=== PATIENT | female | born 1965 | race Caucasian/White ===

== ENCOUNTER → 2020-03-21 08:07 | Outpatient (BNVA) | payer MEDICAID, SELFPAY | PROVIDERS: Visit Provider Nurse Practitioner Family | DX: G47.33 Obstructive sleep apnea (adult) (pediatric) (principal) | CPT/HCPCS: 99213 ==

== ENCOUNTER 2020-05-01 11:55 | Outpatient (REF) | payer MEDICAID, SELFPAY ==
[2020-05-01 14:22] LABS: Thyroid Stimulating Hormone 1.44 uIU/mL (0.32-4.0); Vitamin D 25-OH Total 26.2 ng/mL (>30)
== END 2020-05-01 11:56 | disposition home or self-care (01) ==
LOC: HO.LAB 11:55
PROVIDERS: PCP Internal Medicine; Visit Provider Internal Medicine
DX: E55.9 Vitamin D deficiency, unspecified (principal); E03.9 Hypothyroidism, unspecified; E04.2 Nontoxic multinodular goiter
CPT/HCPCS: 82306; 84439; 84443

== ENCOUNTER → 2020-08-24 11:29 | Outpatient (BNVA) | payer MEDICAID, SELFPAY | PROVIDERS: PCP Internal Medicine; Visit Provider Internal Medicine ==

== ENCOUNTER → 2020-09-19 10:07 | Outpatient (BNVA) | payer MEDICAID, SELFPAY | PROVIDERS: PCP Internal Medicine; Visit Provider Nurse Practitioner Family ==

== ENCOUNTER 2020-11-16 09:22 | Outpatient (REF) | payer MEDICAID, SELFPAY ==
--- NOTE | 2020-11-16 09:45 | EMG_ITS ---
Bilateral median and ulnar motor and sensory studies were performed. Bilateral radial sensory studies were performed and paraspinal muscles were tested with a needle. IMPRESSION: 1. [id number] right, and mild left, median neuropathy across carpal tunnel. 2. Mild left ulnar neuropathy across cubital tunnel. MD NANCY Heard/FERNANDA / [phone]
== END 2020-11-16 09:23 | disposition home or self-care (01) ==
LOC: HO.NEURO 09:22
PROVIDERS: Visit Provider Emergency Medicine
DX: M25.531 Pain in right wrist (principal); M25.532 Pain in left wrist
CPT/HCPCS: 95886; 95911

== ENCOUNTER 2020-12-22 12:08 | Outpatient (REF) | payer MEDICAID, SELFPAY ==
[2020-12-22 13:42] LABS: Free T4 (Free Thyroxine) 0.87 ng/dL (0.71-1.85); Thyroid Stimulating Hormone 1.46 uIU/mL (0.32-4.0)
== END 2020-12-22 12:09 | disposition home or self-care (01) ==
LOC: HO.LAB 12:08
PROVIDERS: PCP Internal Medicine; Visit Provider Internal Medicine
DX: E04.2 Nontoxic multinodular goiter (principal)
CPT/HCPCS: 36415; 84439; 84443

== ENCOUNTER → 2021-01-10 10:12 | Outpatient (BNVA) | payer MEDICAID, SELFPAY | PROVIDERS: PCP Internal Medicine; Visit Provider Orthopaedic Surgery | DX: G56.03 Carpal tunnel syndrome, bilateral upper limbs (principal); G56.22 Lesion of ulnar nerve, left upper limb | CPT/HCPCS: 99202 ==

== ENCOUNTER → 2021-02-21 15:02 | Outpatient (BNVA) | payer MEDICAID, SELFPAY | PROVIDERS: PCP Internal Medicine; Referring Provider Internal Medicine; Visit Provider Nurse Practitioner Family | DX: R13.10 Dysphagia, unspecified (principal); E04.2 Nontoxic multinodular goiter; E03.9 Hypothyroidism, unspecified; E55.9 Vitamin D deficiency, unspecified; G47.33 Obstructive sleep apnea (adult) (pediatric); Z88.8 Allergy status to other drugs, medicaments and biological substances; Z99.89 Dependence on other enabling machines and devices | CPT/HCPCS: 99202 ==

== ENCOUNTER → 2021-04-10 11:17 | Outpatient (BNVA) | payer MEDICAID, SELFPAY | PROVIDERS: PCP Internal Medicine; Referring Provider Internal Medicine; Visit Provider Nurse Practitioner Family ==

== ENCOUNTER 2021-07-18 10:01 | Outpatient (REF) | payer MEDICAID, SELFPAY ==
--- NOTE | ~2021-07-18 | XR_ITS ---
EXAMINATION: XR ELBOW, LEFT CLINICAL INFORMATION: Left elbow pain. COMPARISON: None TECHNIQUE: AP, lateral, and bilateral oblique views of the left elbow. FINDINGS: The bones and soft tissues are normal. No fracture or joint effusion. Alignment is anatomic. Joint spaces are maintained. XR/XR elbow LT 2V IMPRESSION: Unremarkable examination.
== END 2021-07-18 10:02 | disposition home or self-care (01) ==
LOC: HO.XRAY 10:01
PROVIDERS: PCP Internal Medicine; Visit Provider Internal Medicine
DX: M25.522 Pain in left elbow (principal)
CPT/HCPCS: 73070

== ENCOUNTER 2021-08-28 08:49 | Outpatient (REF) | payer MEDICAID, SELFPAY ==
[2021-08-28 10:11] LABS: Thyroid Stimulating Hormone 2.57 uIU/mL (0.32-4.0); Vitamin D 25-OH Total 23.7 ng/mL (>30)
== END 2021-08-28 08:50 | disposition home or self-care (01) ==
LOC: HO.LAB 08:49
PROVIDERS: Absent Provider Internal Medicine; PCP Internal Medicine; Visit Provider Internal Medicine
DX: E04.2 Nontoxic multinodular goiter (principal); E55.9 Vitamin D deficiency, unspecified
CPT/HCPCS: 36415; 82306; 84439; 84443

== ENCOUNTER → 2021-08-29 11:59 | Outpatient (BNVA) | payer MEDICAID, SELFPAY | PROVIDERS: PCP Internal Medicine; Visit Provider Internal Medicine | DX: M77.12 Lateral epicondylitis, left elbow (principal); E03.9 Hypothyroidism, unspecified; E55.9 Vitamin D deficiency, unspecified; E04.2 Nontoxic multinodular goiter | CPT/HCPCS: 20551; 99202; 99212; J1100 ==

== ENCOUNTER 2021-09-03 16:01 | Outpatient (REF) | payer MEDICAID, SELFPAY ==
--- NOTE | ~2021-09-03 | US_ITS ---
EXAMINATION: US THYROID CLINICAL INFORMATION: Nontoxic multinodular goiter. COMPARISON: Ultrasound soft tissue head/neck thyroid dated 08/04/2019 and outside exam 07/20/2020. TECHNIQUE: Linear transducer grayscale and color Doppler examination with attention to the region of the thyroid. FINDINGS: SIZE: Measurements of the thyroid lobes and nodules are given in sagittal, anteroposterior and transverse dimensions respectively. Right Thyroid Lobe: 4.1 x 1.2 x 1.0 cm, volume 2.6 mL. Previously 4.7 x 1.8 x 1.1 cm, volume 4.7 mL. Parenchyma: The gland echotexture is homogeneous. Thyroid vascularity is normal. Left Thyroid Lobe: 4.0 x 1.3 x 1.6 cm, volume 4.6 mL. Previously 5.6 x 1.2 x 1.3 cm, volume 4.6 mL. Parenchyma: The gland echotexture is homogeneous. Thyroid vascularity is normal. Isthmus: 0.3 cm in maximum AP dimension. Previously 0.3 cm. Estimated total number of nodules greater than or equal to 1 cm: 0. Sales Operations Manager nodules are described as follows: 1. Location: Right inferior. Size: 0.36 x 0.39 x 0.31 cm, volume 0.02 mL. Previously: 0.29 x 0.31 x 0.4 cm, volume 0.02 mL. Nodule characteristics: Composition: Mixed cystic and solid (1). Echogenicity: Hypoechoic (2). Shape: Taller than wide (3). Margins: Smooth (0). Echogenic Foci: None (0). ACR TI-RADS total points: 6 ACR TI-RADS category: 4 Significant change in size (>/= 20% in 2 dimensions and minimal increase of 2 mm or 50% or greater increase in volume): Change in features: Change in ACR TI-RADS risk category: The hyperechoic area in the lower pole on July 2020 outside exam is not appreciated. 2. Location: Left inferior and posterior/exophytic. Size: 0.36 x 0.24 x 0.36 cm, volume 0.02 mL. Previously: 0.33 x 0.3 x 0.23 cm, volume 0.01 mL. Nodule characteristics: Composition: Mixed cystic and solid (1). Echogenicity: Hypoechoic (2). Shape: Not taller than wide (0). Margins: Smooth (0). Echogenic Foci: None (0). ACR TI-RADS total points: 3 ACR TI-RADS category: 3 Significant change in size (>/= 20% in 2 dimensions and minimal increase of 2 mm or 50% or greater increase in volume): Change in features: Change in ACR TI-RADS risk category: NODES: No lymphadenopathy is seen in the tissue surrounding the thyroid gland. US/US thyroid IMPRESSION: Stable small bilateral thyroid nodules. ACR TI-RADS RECOMMENDATION REFERENCE: Ultrasound-guided fine-needle aspiration, followup ultrasound, no further follow up. * TR1 (0 point) and TR 2 (2 points): No FNA or follow up * TR3 (3 points): FNA if more than or equal to 2.5 cm in maximum dimension, followup ultrasound in 1, 3 and 5 years if 1.5 to 2.4 cm in maximum dimension. * TR4 (4-6 points): FNA if more than or equal to 1.5 cm in maximum dimension, followup ultrasound in 1, 2, 3 and 5 years if 1 to 1.4 cm in maximum dimension. * TR5 (more than or equal to 7 points): FNA if more than or equal to 1 cm in maximum dimension, followup ultrasound every year for 5 years if 0.5 to 0.9 cm in maximum dimension. * TR3, TR4 or TR5 nodules that are below the size threshold for follow up receive no follow up.
== END 2021-09-03 16:02 | disposition home or self-care (01) ==
LOC: HO.US 16:01
PROVIDERS: Visit Provider Internal Medicine
DX: E04.2 Nontoxic multinodular goiter (principal)
CPT/HCPCS: 76536

== ENCOUNTER → 2021-09-04 09:40 | Outpatient (BNVA) | payer MEDICAID, SELFPAY | PROVIDERS: PCP Internal Medicine; Visit Provider Nurse Practitioner Family | DX: G47.33 Obstructive sleep apnea (adult) (pediatric) (principal); Z99.89 Dependence on other enabling machines and devices | CPT/HCPCS: 99212 ==

== ENCOUNTER 2021-09-12 13:17 | Outpatient (REF) | payer MEDICAID, SELFPAY ==
--- NOTE | ~2021-09-12 | FL_ITS ---
EXAMINATION: XR BARIUM SWALLOW CLINICAL INFORMATION: Dysphagia COMPARISON: None TECHNIQUE: Modified barium swallow was performed under lateral fluoroscopy in presence of speech therapist. FINDINGS: Following oral administration of various consistencies of barium, thin, thick, semiliquid and semisolid food coated with barium there is normal propagation of bolus from the oral cavity through the pharynx and esophagus without obstruction, narrowing or stricture. No laryngeal penetration or aspiration seen. There is no retention of food in the valleculae piriform sinuses. Incidental finding of degenerative disc changes C5-C6 and C6-C7 disc levels with ventral spondylosis. FLUOROSCOPY TIME: 0.6 minutes DOSE AREA PRODUCT: 0.572. uGy-m2 (microgray-meter squared) FL/FL barium swallow modified IMPRESSION: Unremarkable modified barium swallow
--- NOTE | 2021-09-13 11:05 | MHC.SL.IMP ---
Date of Plan of Treatment: 09/12/21 Onset of Symptoms/Illness: 03/15/20 Date Treatment Started: 09/12/21 Admitting Diagnosis: Hypothyroidism Multinodular thyroid Vitamin D deficiency Obstructive sleep apnea CPAP use at night Primary Speech & Language Diagnosis: R13.12 Oropharyngeal Phase Dysphagia Reason for Today's Visit: 15395 Modified Barium Swallow Study Pre-evaluation Dietary Consistencies: Regular Pre-evaluation Liquid Consistency: Thin Pre-evaluation Medication Administration: Whole with Liquid Medical History: Modified Barium Swallow Study Fluoroscopic Evaluation of Swallowing Function CPT Code 58157 Evaluation Year: 2021 Reason for Study: Patient reports globus sensation and pain when swallowing. Referring Physician: Joy HARRISON Evaluating Clinician: Amberly Riddle MA, CCC-BOW MAKER MACHINE TENDER Study Number: 1 Patient Name: Lucero Jansen Status: Outpatient, Ambulatory Age: 56 Gender: Female MEDICAL HISTORY: Year of Onset or Diagnosis: 2021 Comorbidities: Hypothyroidism Multinodular thyroid Vitamin D deficiency Obstructive sleep apnea CPAP use at night Current (pre-evaluation) Intake/Diet: Route: PO Diet Grade: Regular Liquid Consistencies: Thin Pre-Study Functional Oral Intake Scale (FOIS): 7- Total oral intake with no restrictions Pain: Chronic/Ongoing reported at time of study, Throat, rated 6 on scale 0-10 SUBJECTIVE: Patient is a 56 year old female referred for a modified barium swallow study by Joy HARRISON from [facility]. Patient had recent visit with G.I. office, during which it was documented, ?Patient states that her throat is bothering her. She denies any other G.I. symptoms. She does not choke on food, but feels there is something in her throat that hurts.? Per patient, it ?feels like someone is grabbing her neck and choking her. On sonogram it shows that patient has a lot of small nodules.? Patient reports that ?choking-like sensation? is also brought on by air from a fan. Additionally, patient reports intermittent pain when swallowing, which she rates 5 or 6 on a scale 0 to 10. She complains of globus on the right side with solid foods, and reports she sometimes feels she has to expectorate food. She says these difficulties began about 18 months ago. Oral Motor Exam Facial Symmetry: Symmetrical Mouth Occlusion: Normal Oral-Facial Teeth Characteristics: Intact/Normal Oral-Facial Lip Pucker Description: Normal Oral-Facial Smile (Lips) Description: Normal Oral-Facial Puff Cheeks Description: Normal Tongue Size: Normal Tongue Excursion Description: Normal Tongue Range of Movement Description: Normal Tongue Speed of Movement Description: Reduced Tongue Strength of Movement (against opposing pressure): Normal Tongue Movement Characteristics: Normal/Absent Is patient able to manage secretions?: Yes Food and Liquid Trials: Oral Impairment: Lip Closure: Did not test Oral Impairment: Tongue Control During Bolus Hold: 1=Escape to lateral buccal cavity/floor of mouth (FOM) Oral Impairment: Bolus Preparation/Mastication: 0=Timely and efficient chewing and mashing Oral Impairment: Bolus Transport/Lingual Motion: 2=Slowed tongue motion Oral Impairment: Oral Residue: 1=Trace residue lining oral structures Oral Impairment:Initiation of Pharyngeal Swallow: 2=Bolus head at posterior laryngeal surface of epiglottis Pharyngeal Impairment: Soft Palate Elevation: 0=No bolus between soft palate (SP)/pharyngeal wall (PW) Pharyngeal Impairment: Laryngeal Elevation: 0=Complete superior movement of thyroid cartilage (see description) Pharyngeal Impairment: Anterior Hyoid Excursion: 0=Complete anterior movement Pharyngeal Impairment: Epiglottic Movement: 0=Complete inversion Pharyngeal Impairment: Laryngeal Vestibular Closure:: 0=Complete: no air/contrast in laryngeal vestibule Pharyngeal Impairment: Pharyngeal Stripping Wave: 0=Present: complete Pharyngeal Impairment: Pharyngeal Contraction: Did not test Pharyngeal Impairment: Pharyngoesophageal Segment Openin=Complete distension and complete duration: no obstruction of flow Pharyngeal Impairment: Tongue Base (TB) Retraction: 1=Trace column of contrast/air between TB and posterior PW Pharyngeal Impairment: Pharyngeal Residue: 1=Trace residue within or on pharyngeal structures Pharyngeal Impairment: Esophageal Clearance Upright Position: Did not test Impressions and Recommendations Clinical Observations: OBJECTIVE: Time-out: performed at 02:45 Evaluation Start: 02:30; Stop: 02:40 Patient Positioning: Seated 70-90 degrees Viewing Planes: LATERAL ONLY Contrast: MBSImP? Standardized Protocol using commercially prepared, standardized Barium viscosities, including: Varibar? THIN LIQUID (40% w/v, <15 cps) , 1/2 Shortbread Cookie (1 x1 x.25 ) MBSImP ID: [id number] MBSImP Results: Lip closure for intraoral bolus containment could not be assessed due to logistical reasons not related to physiologic impairment. Tongue control during bolus hold allowed bolus escape to the lateral buccal cavity/floor of mouth. Bolus preparation and mastication resulted in timely and efficient chewing and mashing. Bolus transport/lingual motion was with slowed tongue motion. Oral residue was a trace, lining oral structures. Initiation of the pharyngeal swallow occurred as the bolus head was at the posterior laryngeal surface of the epiglottis. Soft palate elevation resulted in no bolus between the soft palate and the pharyngeal wall. Laryngeal elevation demonstrated complete superior movement of the thyroid cartilage with complete approximation of the arytenoids to the epiglottic petiole. Anterior hyoid excursion demonstrated complete anterior movement. Epiglottic movement resulted in complete inversion. Laryngeal vestibular closure was complete, as indicated by no air or contrast within the laryngeal vestibule at the height of the swallow. Pharyngeal stripping wave was present and complete. Pharyngeal contraction could not be determined due to logistical reasons not related to physiologic impairment. Pharyngoesophageal segment opening was completely distended for complete duration with no obstruction of bolus flow. Tongue base retraction allowed a trace column of contrast or air between the retracted tongue base and the posterior pharyngeal wall. Pharyngeal residue was a trace within or on pharyngeal structures. Esophageal clearance in the upright position could not be assessed due to logistical reasons not related to physiologic impairment. Oral Impairment Score: 5 (absence of score, component 1) Pharyngeal Impairment Score: 0 (absence of score, component 13) Esophageal Impairment Score: --- (absence of score, component 17) Laryngeal Penetration and Aspiration: Neither penetration nor aspiration was observed in today's study with Cookie, Thin. Structural Abnormalities Noted: Per radiologist, ?incidental finding of degenerative disc changes C5-C6 and C6-C7 disc levels with ventral spondylosis.? Noted, but had no functional significance. ASSESSMENT: Clinician Assessment: This exam was conducted by a multidisciplinary team which included a speech pathologist, radiologist, and equipment technician. Patient was seated upright at 90 degree angle in chair for lateral view only. Patient trialed the following liquid and solid consistencies: 5 mL thin liquid barium, individual cup sip thin liquid barium, consecutive cup sips thin liquid barium, pureed solid (mixture applesauce with barium paste), ground solid (mixture chicken salad with barium paste), and regular solid (Kriss Doone cookie coated with barium paste). Timely and efficient mastication. Good oral containment of bolus. Mildly slowed posterior tongue movement with resultant trace residue lining tongue, which cleared spontaneously. No nasopharyngeal reflux. Complete laryngeal elevation with complete anterior hyoid movement and complete epiglottic inversion. Complete laryngeal vestibular closure. No evidence of aspiration or penetration with liquids and solids. Trace residue in valleculae and on pharyngeal wall considered to be within functional limits and cleared with dry swallow. No obstruction of flow through pharyngoesophageal segment opening. Liquid Intake Recommendation: Thin Liquid Intake Strategies: Unrestricted Dietary Recommendations: Regular Medication Administration: Whole with Liquid Please contact the pharmacy regarding appropriate crushable or liquid drug formulations that are available whenever modified delivery is recommended. Supervision during eating and or drinking: None Needed Recommendation for Speech Therapy: NA:Typical Evaluation Text Comment: PLAN: Intake Recommendations: Route: PO Diet Grade: Regular Liquid Consistencies: Thin Post-Study Functional Oral Intake Scale (FOIS): 7- Total oral intake with no restrictions This exam was unremarkable. Swallow function deemed to be within normal limits. Recommend resume unmodified diet REGULAR solids and THIN liquids. Further speech intervention is not warranted at this time. Suggested Referrals: The patient might benefit from a referral to: [facility] Recommendations: Therapy will be discontinued Prognosis for Improvement: The prognosis for the patient to meet nutritional needs by mouth is excellent based on degree of impairment. Clinician - Supplemental, Miscellaneous Communication: It is important to note MBSS objective studies are snapshots in time and Patient function might vary with factors such as time of day or concomitant medical conditions. For this reason, the final treatment plan for this patient should rest with their medical care team. Additional recommendations should be considered with the totality of the Patient in mind. Thank for the opportunity to participate in the care of this patient. If you have any questions about the content of this report, please contact the [facility]. Education: Education regarding findings from today's study and plans for therapy were provided to Patient only through Verbal Instruction. Understanding was expressed by the Patient only. Residential Leasing Agent Clinician/Clinical Fellow: No Supervisory Statement: N/A Speech Language Pathologist: Amberly Riddle M.A., CCC-BOW MAKER MACHINE TENDER
== END 2021-09-12 13:18 | disposition home or self-care (01) ==
LOC: HO.XRAY 13:17
PROVIDERS: Visit Provider Nurse Practitioner Family
DX: R13.12 Dysphagia, oropharyngeal phase (principal)
CPT/HCPCS: 74230; 92611

== ENCOUNTER 2021-12-10 13:01 | Outpatient (REF) | payer MEDICAID, SELFPAY ==
--- NOTE | ~2021-12-10 | MM_ITS ---
EXAMINATION: MM SCREENING DIGITAL BREAST TOMOSYNTHESIS, BILATERAL CLINICAL INFORMATION: Screening. Asymptomatic. The lifetime risk of breast cancer based on the Tyrer-Cuzick Model is 9%. COMPARISON: Mammography: 01/05/2020, 03/24/2018, 11/20/2017 TECHNIQUE: Digital breast tomosynthesis is performed in both the craniocaudal and mediolateral oblique views along with computer-aided detection (CAD). Synthesized 2D images are generated from the tomosynthesis. FINDINGS: There are scattered areas of fibroglandular density (ACR BI-RADS breast composition Category b). There are no significant masses, abnormal calcifications, or other abnormalities. Recommend pattern is similar to prior studies. The axilla and skin contours are unremarkable. MM/MM tomosynthesis screening BI IMPRESSION: No mammographic evidence of malignancy. ASSESSMENT: BI-RADS 1: Negative RECOMMENDATION: Routine annual mammography screening. This patient's information was entered into a reminder system with a target due date for their next mammogram.
== END 2021-12-10 13:02 | disposition home or self-care (01) ==
LOC: HO.MAMMO 13:01
PROVIDERS: PCP Internal Medicine; Visit Provider Internal Medicine
DX: Z12.31 Encounter for screening mammogram for malignant neoplasm of breast (principal)
CPT/HCPCS: 77063; 77067

== ENCOUNTER 2022-03-25 08:40 | Emergency (ER) | payer MEDICAID, SELFPAY ==
--- NOTE | ~2022-03-25 | XR_ITS ---
EXAMINATION: XR SHOULDER, LEFT CLINICAL INFORMATION: Fall. Pain. COMPARISON: None TECHNIQUE: AP external rotation, Grashey, scapular Y, and axillary views of the left shoulder. FINDINGS: The bones and soft tissues are normal. No fracture. Glenohumeral and acromioclavicular alignment is anatomic with normal joint space. No abnormal soft tissue calcifications. XR/XR shoulder LT min 2V IMPRESSION: Normal left shoulder.
[2022-03-25 08:41] VITALS: BP 155/92; PULSE 73; RESP 16; TEMP 36.9; O2SAT 99; BMI 37.8
--- NOTE | 2022-03-25 10:07 | ED_ITS ---
HPI - Fall General Chief Complaint: Fall Stated Complaint: FALL BOTH KNEES AND L SHOULDER PAIN Time Seen by Provider: 03/25/22 09:47 Source: patient and special events planner Mode of arrival: ambulatory Limitations: language barrier History of Present Illness HPI Narrative: 56-year-old female who has a history of hypothyroidism, sleep apnea, arthritis presents with complaints of left shoulder pain after a fall which occurred 8 days ago. Patient tells she she was walking and she twisted her right ankle causing her to fall on her left shoulder and both knees. There was no head strike or loss of consciousness. She does not take any anticoagulation. She has been taking naproxen in using Voltaren topical but is having continued pain in the left shoulder. She tells me she is able to ambulate. She does have some slight discomfort to both knees but no difficulty with moving around. She reports pain in left shoulder with no associated weakness, numbness, tingling or swelling. She is right handed. Related Data Home Medications Medication Instructions Recorded Confirmed albuterol sulfate 90 mcg/actuation 1 inh inhalation QID 03/21/20 09/04/21 aerosol inhaler (ProAir HFA) ipratropium 0.5 mg-albuterol 3 mg 3 ml inhalation QID PRN 03/21/20 09/04/21 (2.5 mg base)/3 mL nebulization soln montelukast 10 mg tablet 10 mg PO DAILY 03/21/20 09/04/21 (Singulair) omeprazole 40 mg capsule,delayed 40 mg PO DAILY 03/21/20 09/04/21 release calcium carbonate 600 mg-vitamin 1 tab PO BID 02/21/21 09/04/21 D3 5 mcg (200 unit) tablet fluticasone propionate 110 0 mcg PO BID 02/21/21 09/04/21 mcg/actuation HFA aerosol inhaler (Flovent HFA) loratadine 10 mg tablet 10 mg PO DAILY PRN allergies 02/21/21 09/04/21 metoprolol succinate 50 mg 50 mg PO DAILY 02/21/21 09/04/21 tablet,extended release 24 hr Previous Rx's Medication Instructions Recorded diclofenac sodium 1 % topical gel 2 g topical BID #100 grams 07/04/20 (Voltaren) gabapentin 100 mg capsule 100 mg PO DAILY #90 caps 08/02/20 (Neurontin) cholecalciferol (vitamin D3) 25 25 mcg PO DAILY 30 days #30 caps 08/29/21 mcg (1,000 unit) capsule naproxen 500 mg tablet 500 mg PO BID #60 tabs 01/07/22 cyclobenzaprine 10 mg tablet 10 mg PO TID PRN muscle spasm #14 03/25/22 tabs Allergies Allergy/AdvReac Type Severity Reaction Status Date / Time carisoprodol [From SOMA] Allergy Unknown UNKNOWN Verified 09/04/21 09:52 Review of Systems Review of Systems: Yes all other systems are reviewed and are negative Constitutional: Constitutional: Reports no additional constitutional complaints, Denies body ache(s), Denies chills, Denies fever(s), Denies headache(s) and Denies weakness Eyes: Eyes: Reports no additional eye complaints and Denies change in vision ENT: Reports system reviewed and no additional complaints, except as documented, Denies dizziness, Denies headache(s), Denies nasal congestion, Denies nasal discharge and Denies neck pain Cardiovascular: Cardiovascular: Reports no additional cardiovascular complaints, Denies chest pain, Denies leg edema and Denies dyspnea Respiratory: Respiratory: Reports no additional respiratory complaints, Denies cough and Denies dyspnea Gastrointestinal: Gastrointestinal: Reports no additional gastrointestinal complaints, Denies abdominal pain, Denies diarrhea, Denies nausea and Denies vomiting Genitourinary: Genitourinary: Reports no additional female genitourinary complaints and Denies urinary incontinence Musculoskeletal: Musculoskeletal: Reports no additional musculoskeletal complaints, Denies back pain, Reports arthralgias, Denies joint swelling, Denies limited range of motion, Denies neck pain, Denies numbness and Denies tingling Integumentary/Breasts: Skin/Breast: Reports system reviewed and no additional complaints, except as docu and Denies rash Neurologic: Reports system reviewed and no additional complaints, except as documented, Denies Abnormal speech present, Denies dizziness, Denies headache(s), Denies numbness, Denies tingling and Denies weakness PMFSH Past Medical History Attestation statement: The following information was validated with the patient. Source: old records reviewed and nursing notes reviewed Medical History Hypothyroidism Multinodular thyroid Vitamin D deficiency Surgical History History of appendectomy History of hysterectomy History of tubal ligation Hx of colonoscopy Family History Family History Father No problems noted. Mother No problems noted. Social History Social History Alcohol intake: current Alcohol intake frequency: holidays/special occasions only Patient Tobacco Use Status: Never used Tobacco Advance Directives: No Advance Directives Information Provided: Yes Current occupational status: disabled Current occupation: rt hand Physical Exam Vital Signs: Vital Signs: Last Vital Signs Temp 98.5 F 03/25/22 08:41 Pulse 73 03/25/22 08:41 Resp 16 03/25/22 08:41 BP 155/92 H 03/25/22 08:41 Pulse Ox 99 03/25/22 08:41 O2 Del Method 03/25/22 08:41 BMI result Body Mass Index 37.8 Const: General: cooperative, healthy appearing, comfortable and no acute distress Orientation/consciousness: patient oriented x3 Limitations: no limitations HEENT: Head: Yes normal to inspection Ears: hearing grossly normal bilaterally General nose exam: Normal external nose present Face and sinus: Yes normal facial exam Mouth: Normal oral and palatal mucosa present Throat: Yes posterior oropharynx normal Eyes: General: appearance normal, both eyes and all related structures Pupils: Equal, round and reactive pupils present Neck: Neck: Yes normal visual inspection Chest: Chest palpation & inspection: normal inspection of the chest Resp: Effort & Inspection: normal respiratory effort Auscultation: clear to auscultation bilaterally Cardio: Rate: regular rate Rhythm: regular rhythm Peripheral pulses: Peripheral pulses 2+ throughout GI: Inspection: Yes normal to inspection Palpation (GI): Soft to palpation and nontender Auscultation: normal bowel sounds Back/Spine/Pelvis: Thoracic/Lumbar Spine: thoracic and lumbar spine normal to inspection Skin: General skin exam: no rashes or lesions noted Neuro: General: patient oriented x3, no focal motor deficits and normal sensation to monofilament Cranial nerves: Yes Equal, round and reactive pupils present Cognition (Neuro): normal cognition Speech: No Abnormal speech present Gait exam (Neuro): Normal gait present Motor exam (neuro): 5/5 motor strength present throughout Extrem: Other: There is tenderness the left anterior shoulder and left trapezius as well as the left proximal humerus which is worsened with abduction of the extremity. Neurovascularly intact distally to the left upper extremity. Pulses are normal. Patient has full range of motion of bilateral knees with no tenderness on exam. Full range of motion of right ankle with no tenderness on exam. General: Yes normal to inspection Course Course Course Narrative: X-rays of the left shoulder show no bony abnormality. Likely contusion. Patient will be given Flexeril and she can take this in addition to naproxen at home. Reviewed rice. Reviewed worrisome signs and symptoms of when to return to the emergency room. Comfortable plan for discharge home. MDM - Fall MDM Narrative Medical decision making narrative: This is a 56-year-old female who had a mechanical fall 8 days ago who presents with continued left shoulder pain despite supportive care at home. Will obtain x-rays of the left shoulder Medical Records Attestation: I reviewed the patient's medical records. Lab Data Attestation: I reviewed the patient's lab results. Imaging Data shoulder x-ray: Attestation: I personally reviewed and interpreted this imaging study as follows: Radiologist's impression: [address] [address] XRay Report Signed Patient: Lucero Marques MR#: [id number] : 1965 Acct:[id number] Age/Sex: 56 / F ADM Date: 03/25/22 Loc: .ED Attending Dr: Ordering Physician: Mar Campbell NP Date of Service: 03/25/22 Procedure(s): XR shoulder LT min 2V Accession Number(s): [id number] cc: Mar Campbell NP~ EXAMINATION: XR SHOULDER, LEFT CLINICAL INFORMATION: Fall. Pain.? COMPARISON: None? TECHNIQUE: AP external rotation, Grashey, scapular Y, and axillary views of the left shoulder. FINDINGS: The bones and soft tissues are normal. No fracture. Glenohumeral and acromioclavicular alignment is anatomic with normal joint space. No abnormal soft tissue calcifications.? XR/XR shoulder LT min 2V IMPRESSION: Normal left shoulder. Discharge Plan Discharge Clinical Impression: Contusion of left shoulder Patient Disposition: Home, Self-Care Instructions: Contusion in Adults (ED) Additional Instructions: Las radiograf?as del hombro no muestran anomal?as ?seas. Debe continuar tomando naproxeno y usar la crema t?pica Voltaren. Estamos a?adiendo un relajante muscular en dosis bajas. Jorge L un seguimiento con shook m?dico de atenci?n primaria en 1 semana por cualquier s?ntoma persistente. Prescriptions: New cyclobenzaprine 10 mg tablet 10 mg PO TID PRN (Reason: muscle spasm) Qty: 14 0RF No Action diclofenac sodium [Voltaren] 1 % gel 2 g topical BID Qty: 100 3RF Rx Instructions: apply to single knee, ankle, foot; for foot includes sole/toes/top of foot gabapentin [Neurontin] 100 mg capsule 100 mg PO DAILY Qty: 90 1RF naproxen 500 mg tablet 500 mg PO BID Qty: 60 3RF montelukast [Singulair] 10 mg tablet 10 mg PO DAILY albuterol sulfate [ProAir HFA] 90 mcg/actuation HFA aerosol inhaler 1 inh inhalation QID ipratropium-albuterol 0.5 mg-3 mg(2.5 mg base)/3 mL solution for nebulization 3 ml inhalation QID PRN omeprazole 40 mg capsule,delayed release(DR/EC) 40 mg PO DAILY cholecalciferol (vitamin D3) 25 mcg (1,000 unit) capsule 25 mcg PO DAILY 30 Days Qty: 30 11RF calcium carbonate-vitamin D3 600 mg(1,500mg) -200 unit tablet 1 tab PO BID loratadine 10 mg tablet 10 mg PO DAILY PRN (Reason: allergies) metoprolol succinate 50 mg tablet extended release 24 hr 50 mg PO DAILY Flovent HFA 110 mcg/actuation HFA aerosol inhaler 0 mcg PO BID Referrals: Kamini Monroy MD [Primary Care Provider] - 1 week Interventions: ED Discharge Assessment Last Done: 03/25/22 11:00 Discharge Date/Time: 03/25/22 11:02 Print Language: Swedish
== END 2022-03-25 11:02 | disposition home or self-care (01) ==
PROVIDERS: Emergency Provider Student in an Organized Health Care Education/Training Program; PCP Internal Medicine
DX: S40.012A Contusion of left shoulder, initial encounter (principal); W18.30XA Fall on same level, unspecified, initial encounter; Y93.01 Activity, walking, marching and hiking; Y92.480 Sidewalk as the place of occurrence of the external cause; Y99.9 Unspecified external cause status
CPT/HCPCS: 73030; 99283

== ENCOUNTER 2022-07-14 09:43 | Emergency (ER) | payer MEDICAID, SELFPAY ==
[2022-07-14 09:58] VITALS: BP 139/78; PULSE 75; RESP 16; TEMP 36.6; O2SAT 97; BMI 37.4
--- NOTE | 2022-07-14 10:43 | ED.EXTPRO ---
HPI - Extremity Problem General Chief complaint: Extremity Injury, Upper Stated complaint: Fall 4 Months ago/L shoulder pain Time Seen by Provider: 07/14/22 09:57 Source: patient and gift shop clerk Mode of arrival: ambulatory Limitations: language barrier History of Present Illness HPI Narrative: 57-year-old female who has a history of hypothyroidism, sleep apnea, arthritis presents with complaints of left shoulder pain after a fall which occurred in March. Patient reports that she had x-rays are normal. She was prescribed cyclobenzaprine. She took this but continued to have pain. She did speak to her primary care doctor over the phone and was prescribed naproxen. Also given Voltaren. Patient reports using naproxen and Voltaren with continued symptoms. She has not followed up with her primary care doctor again. She denies any recent injury or trauma. She denies any numbness, tingling, weakness of the extremity. She is right-handed. MD Complaint: extremity pain Related Data Home Medications Medication Instructions Recorded Confirmed albuterol sulfate 90 mcg/actuation 1 inh inhalation QID 03/21/20 09/04/21 aerosol inhaler (ProAir HFA) ipratropium 0.5 mg-albuterol 3 mg 3 ml inhalation QID PRN 03/21/20 09/04/21 (2.5 mg base)/3 mL nebulization soln montelukast 10 mg tablet 10 mg PO DAILY 03/21/20 09/04/21 (Singulair) omeprazole 40 mg capsule,delayed 40 mg PO DAILY 03/21/20 09/04/21 release calcium carbonate 600 mg-vitamin 1 tab PO BID 02/21/21 09/04/21 D3 5 mcg (200 unit) tablet fluticasone propionate 110 0 mcg PO BID 02/21/21 09/04/21 mcg/actuation HFA aerosol inhaler (Flovent HFA) loratadine 10 mg tablet 10 mg PO DAILY PRN allergies 02/21/21 09/04/21 metoprolol succinate 50 mg 50 mg PO DAILY 02/21/21 09/04/21 tablet,extended release 24 hr Previous Rx's Medication Instructions Recorded diclofenac sodium 1 % topical gel 2 g topical BID #100 grams 07/04/20 (Voltaren) gabapentin 100 mg capsule 100 mg PO DAILY #90 caps 08/02/20 (Neurontin) cholecalciferol (vitamin D3) 25 25 mcg PO DAILY 30 days #30 caps 08/29/21 mcg (1,000 unit) capsule naproxen 500 mg tablet 500 mg PO BID #60 tabs 01/07/22 cyclobenzaprine 10 mg tablet 10 mg PO TID PRN muscle spasm #14 03/25/22 tabs methocarbamol 750 mg tablet 750 mg PO TID PRN muscle spasm #15 07/14/22 tabs Allergies Allergy/AdvReac Type Severity Reaction Status Date / Time carisoprodol [From SOMA] Allergy Unknown UNKNOWN Verified 09/04/21 09:52 Review of Systems Review of Systems: Yes all other systems are reviewed and are negative Constitutional: Constitutional: Reports no additional constitutional complaints, Denies body ache(s), Denies chills, Denies fever(s), Denies headache(s) and Denies weakness Eyes: Eyes: Reports no additional eye complaints and Denies change in vision ENT: Reports system reviewed and no additional complaints, except as documented, Denies dizziness, Denies headache(s), Denies nasal congestion, Denies nasal discharge and Denies neck pain Cardiovascular: Cardiovascular: Reports no additional cardiovascular complaints, Denies chest pain, Denies leg edema and Denies dyspnea Respiratory: Respiratory: Reports no additional respiratory complaints, Denies cough and Denies dyspnea Gastrointestinal: Gastrointestinal: Reports no additional gastrointestinal complaints, Denies abdominal pain, Denies diarrhea, Denies nausea and Denies vomiting Genitourinary: Genitourinary: Reports no additional female genitourinary complaints and Denies urinary incontinence Musculoskeletal: Musculoskeletal: Reports no additional musculoskeletal complaints, Denies back pain, Reports arthralgias, Reports joint swelling, Denies limited range of motion, Denies neck pain, Denies numbness and Denies tingling Integumentary/Breasts: Skin/Breast: Reports system reviewed and no additional complaints, except as docu and Denies rash Neurologic: Reports system reviewed and no additional complaints, except as documented, Denies Abnormal speech present, Denies dizziness, Denies headache(s), Denies numbness, Denies tingling and Denies weakness PMFSH Past Medical History Attestation statement: The following information was validated with the patient. Source: old records reviewed and nursing notes reviewed Medical History Hypothyroidism Multinodular thyroid Vitamin D deficiency Surgical History History of appendectomy History of hysterectomy History of tubal ligation Hx of colonoscopy Family History Family History Father No problems noted. Mother No problems noted. Social History Social History Alcohol intake: current Alcohol intake frequency: holidays/special occasions only Patient Tobacco Use Status: Never used Tobacco Advance Directives: No Advance Directives Information Provided: Yes Current occupational status: disabled Current occupation: rt hand Physical Exam Vital Signs: Vital Signs: Last Vital Signs Temp 97.9 F 07/14/22 09:58 Pulse 75 07/14/22 09:58 Resp 16 07/14/22 09:58 BP 139/78 07/14/22 09:58 Pulse Ox 97 07/14/22 09:58 O2 Del Method 07/14/22 09:58 BMI result Body Mass Index 37.4 Const: General: cooperative, healthy appearing, comfortable and no acute distress Orientation/consciousness: patient oriented x3 Limitations: no limitations HEENT: Head: Yes normal to inspection Ears: hearing grossly normal bilaterally General nose exam: Normal external nose present Face and sinus: Yes normal facial exam Mouth: Normal oral and palatal mucosa present Throat: Yes posterior oropharynx normal Eyes: General: appearance normal, both eyes and all related structures Pupils: Equal, round and reactive pupils present Neck: Neck: Yes normal visual inspection Chest: Chest palpation & inspection: normal inspection of the chest Resp: Effort & Inspection: normal respiratory effort Auscultation: clear to auscultation bilaterally Cardio: Rate: regular rate Rhythm: regular rhythm Peripheral pulses: Peripheral pulses 2+ throughout GI: Inspection: Yes normal to inspection Palpation (GI): Soft to palpation and nontender Auscultation: normal bowel sounds Back/Spine/Pelvis: Thoracic/Lumbar Spine: thoracic and lumbar spine normal to inspection Skin: General skin exam: no rashes or lesions noted Neuro: General: patient oriented x3, no focal motor deficits and normal sensation to monofilament Cranial nerves: Yes Equal, round and reactive pupils present Cognition (Neuro): normal cognition Speech: No Abnormal speech present Gait exam (Neuro): Normal gait present Motor exam (neuro): 5/5 motor strength present throughout Extrem: Other: There is pain over the left posterior shoulder which is worsened with abduction of the extremity. Normal strength. Normal sensation. No palpable tenderness over the elbow, forearm, wrist or hand. Normal distal pulses. General: Yes normal to inspection Medical Decision Making Medical Decision Making MDM Narrative: 57-year-old female here with persistent left shoulder pain after a fall which occurred several months ago with negative x-rays. Patient with pain over the left posterior shoulder worsened with abduction. May have rotator cuff injury. Recommend patient follow-up with Orthopedics. No need for additional imaging as patient has not had any new injury or trauma. She is making naproxen and using Voltaren with continued pain. Will add methocarbamol. Patient should speak to her primary care doctor about needing a referral to see Orthopedics. Differential Diagnosis Differential Diagnoses: The differential diagnosis associated with the presentation includes Strain, rotator cuff injury, contusion Discharge Plan Discharge Clinical Impression: Left shoulder strain Patient Disposition: Home, Self-Care Instructions: Muscle Strain (ED), Rotator Cuff Injury (ED) Additional Instructions: Continue your naproxen and Voltaren. We are adding a muscle relaxant. Apply heat to the affected area and use gentle massage. You need to follow-up with orthopedic. He will need to call your primary care doctor and see if you need a referral for this 1st. Contin?e con shook naproxeno y Voltaren. Estamos a?adiendo un relajante muscular. Aplique calor en el ?elizabeth afectada y use un masaje suave. Necesita seguimiento con ortopedia. Tendr? que llamar a shook m?dico de atenci?n primaria y romana si necesita dc remisi?n para porter 1er. Prescriptions: New methocarbamol 750 mg tablet 750 mg PO TID PRN (Reason: muscle spasm) Qty: 15 0RF No Action diclofenac sodium [Voltaren] 1 % gel 2 g topical BID Qty: 100 3RF Rx Instructions: apply to single knee, ankle, foot; for foot includes sole/toes/top of foot gabapentin [Neurontin] 100 mg capsule 100 mg PO DAILY Qty: 90 1RF naproxen 500 mg tablet 500 mg PO BID Qty: 60 3RF cyclobenzaprine 10 mg tablet 10 mg PO TID PRN (Reason: muscle spasm) Qty: 14 0RF montelukast [Singulair] 10 mg tablet 10 mg PO DAILY albuterol sulfate [ProAir HFA] 90 mcg/actuation HFA aerosol inhaler 1 inh inhalation QID ipratropium-albuterol 0.5 mg-3 mg(2.5 mg base)/3 mL solution for nebulization 3 ml inhalation QID PRN omeprazole 40 mg capsule,delayed release(DR/EC) 40 mg PO DAILY cholecalciferol (vitamin D3) 25 mcg (1,000 unit) capsule 25 mcg PO DAILY 30 Days Qty: 30 11RF calcium carbonate-vitamin D3 600 mg(1,500mg) -200 unit tablet 1 tab PO BID loratadine 10 mg tablet 10 mg PO DAILY PRN (Reason: allergies) metoprolol succinate 50 mg tablet extended release 24 hr 50 mg PO DAILY Flovent HFA 110 mcg/actuation HFA aerosol inhaler 0 mcg PO BID Referrals: [facility] [Provider Group] - 1 week Kamini Monroy MD [Primary Care Provider] - 1 week Interventions: ED Discharge Assessment Last Done: 07/14/22 11:30 Discharge Date/Time: 07/14/22 11:34 Print Language: Bur[place]ian
== END 2022-07-14 11:34 | disposition home or self-care (01) ==
PROVIDERS: Emergency Provider Student in an Organized Health Care Education/Training Program; PCP Internal Medicine
DX: S46.912A Strain of unspecified muscle, fascia and tendon at shoulder and upper arm level, left arm, initial encounter (principal); X58.XXXA Exposure to other specified factors, initial encounter; Y93.9 Activity, unspecified; Y92.9 Unspecified place or not applicable; Y99.9 Unspecified external cause status; Z79.899 Other long term (current) drug therapy
CPT/HCPCS: 99283

== ENCOUNTER 2022-07-15 09:20 | Outpatient (REF) | payer MEDICAID, SELFPAY ==
--- NOTE | ~2022-07-15 | US_ITS ---
EXAMINATION: US THYROID CLINICAL INFORMATION: Nontoxic multinodular goiter. COMPARISON: Thyroid ultrasound 09/03/2021 and 07/20/2020. TECHNIQUE: Linear transducer grayscale and color Doppler examination with attention to the region of the thyroid. FINDINGS: SIZE: Measurements of the thyroid lobes and nodules are given in sagittal, anteroposterior and transverse dimensions respectively. Right Thyroid Lobe: 4.9 x 1.5 x 1.5 cm, volume 5.8 mL. Previously 4.1 x 1.2 x 1.0 cm, volume 2.6 mL. Parenchyma: The gland echotexture is homogeneous. Thyroid vascularity is normal. Left Thyroid Lobe: 4.8 x 1.2 x 1.4 cm, volume 4.2 mL. Previously 4.0 x 1.3 x 1.6 cm, volume 4.6 mL. Parenchyma: The gland echotexture is homogeneous. Thyroid vascularity is normal. Isthmus: 0.3 cm in maximum AP dimension. Previously 0.3 cm. Estimated total number of nodules greater than or equal to 1 cm: 0. 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 Location: Right lower pole. Size: 0.4 x 0.3 x 0.4 cm, volume 0.03 mL. Previously: 0.4 x 0.4 x 0.3 cm, volume 0.02 mL. Nodule characteristics: Composition: Solid (2). Echogenicity: Hypoechoic (2). Shape: Taller than wide (3). Margins: Smooth (0). Echogenic Foci: None (0). ACR TI-RADS total points: 7 Previous: 6 ACR TI-RADS category: 5 Previous: 4 Significant change in size (>/= 20% in 2 dimensions and minimal increase of 2 mm or 50% or greater increase in volume): No Change in features: No Change in ACR TI-RADS risk category: Yes 2. Location: Left lower pole. Size: 0.5 x 0.4 x 0.4 cm, volume 0.04 mL. Previously: 0.4 x 0.2 x 0.4 cm, volume 0.02 mL. Nodule characteristics: Composition: Solid (2). Echogenicity: Hypoechoic (2). Shape: Taller than wide (3). Margins: Smooth (0). Echogenic Foci: None (0). ACR TI-RADS total points: 7 Previous: 3 ACR TI-RADS category: 5 Previous: 3 Significant change in size (>/= 20% in 2 dimensions and minimal increase of 2 mm or 50% or greater increase in volume): No Change in features: No Change in ACR TI-RADS risk category: Yes NODES: No lymphadenopathy is seen in the tissue surrounding the thyroid gland. US/US thyroid IMPRESSION: Normal size thyroid with 2 small subcentimeter nodules, 4 mm and 5 mm in size. Given the TR category 5 classification, follow-up in 1 year is recommended. ACR TI-RADS RECOMMENDATION REFERENCE: Ultrasound-guided fine-needle aspiration, followup ultrasound, no further follow up. * TR1 (0 point) and TR2 (2 points): No FNA or follow up * TR3 (3 points): FNA if more than or equal to 2.5 cm in maximum dimension, followup ultrasound in 1, 3 and 5 years if 1.5 to 2.4 cm in maximum dimension. * TR4 (4-6 points): FNA if more than or equal to 1.5 cm in maximum dimension, followup ultrasound in 1, 2, 3 and 5 years if 1 to 1.4 cm in maximum dimension. * TR5 (more than or equal to 7 points): FNA if more than or equal to 1 cm in maximum dimension, followup ultrasound every year for 5 years if 0.5 to 0.9 cm in maximum dimension. * TR3, TR4 or TR5 nodules that are below the size threshold for follow up receive no follow up.
== END 2022-07-15 09:21 | disposition home or self-care (01) ==
LOC: HO.US 09:20
PROVIDERS: Visit Provider Internal Medicine
DX: E04.2 Nontoxic multinodular goiter (principal)
CPT/HCPCS: 76536

== ENCOUNTER → 2022-08-01 13:20 | Outpatient (BNVA) | payer MEDICAID, SELFPAY | PROVIDERS: PCP Internal Medicine; Visit Provider Physician Assistant | DX: M75.82 Other shoulder lesions, left shoulder (principal) | CPT/HCPCS: 20610; 99212; J1040 ==

== ENCOUNTER → 2022-08-21 11:42 | Outpatient (BNVA) | payer MEDICAID, SELFPAY | PROVIDERS: PCP Internal Medicine; Visit Provider Internal Medicine | DX: E03.9 Hypothyroidism, unspecified (principal); E55.9 Vitamin D deficiency, unspecified; E04.2 Nontoxic multinodular goiter | CPT/HCPCS: 99212 ==

== ENCOUNTER 2022-10-01 07:17 | Outpatient (REF) | payer MEDICAID, SELFPAY ==
--- NOTE | ~2022-10-01 | MR_ITS ---
EXAMINATION: MR SHOULDER WITHOUT CONTRAST, LEFT CLINICAL INFORMATION: Acute left shoulder pain and weakness. Loss of range of motion. Evaluate for rotator cuff tendon tear. COMPARISON: Left shoulder radiographs dated 03/25/2022. TECHNIQUE: Multisequence MR imaging of the left shoulder was obtained without contrast on a high-field strength scanner. FINDINGS: ROTATOR CUFF: Mild supraspinatus and infraspinatus tendinosis with mild bursal surface fraying/partial tearing of the junctional fibers measuring up to 1.6 x 1.1 cm. No full-thickness rotator cuff tendon tear. No muscle atrophy or fatty infiltration. BICEPS: Intact. CORACOACROMIAL ARCH: The undersurface of the acromion is flat with no subacromial spur. Mild acromioclavicular osteoarthritis. Trace fluid and edema within the subacromial subdeltoid bursa, consistent mild bursitis. LABRUM/CAPSULE: Linear fluid signal extends through the undersurface of the entirety of the glenoid labrum, consistent with nondisplaced undersurface tearing. Intact inferior joint capsule. GLENOHUMERAL JOINT/MARROW: Unremarkable. MR/MR shoulder LT wo con IMPRESSION: Mild supraspinatus and infraspinatus tendinosis with mild bursal surface fraying/partial tearing of the junctional fibers measuring 1.6 x 1.1 cm. No full-thickness rotator cuff tendon tear. Mild acromioclavicular osteoarthritis. Mild subacromial subdeltoid bursitis. Nondisplaced undersurface tear throughout entirety of the glenoid labrum.
== END 2022-10-01 07:18 | disposition home or self-care (01) ==
LOC: HO.MRI 07:17
PROVIDERS: PCP Internal Medicine; Visit Provider Registered Nurse
DX: M25.512 Pain in left shoulder (principal)
CPT/HCPCS: 73221

== ENCOUNTER 2022-11-19 10:24 | Outpatient (REF) | payer MEDICAID, SELFPAY ==
--- NOTE | ~2022-11-19 | XR_ITS ---
EXAMINATION: XR KNEE, RIGHT CLINICAL INFORMATION: Pain after injuring right knee a year ago COMPARISON: None available. TECHNIQUE: Four views of the right knee. FINDINGS: The bones are intact. No fracture or joint effusion. Alignment is anatomic. There is moderate narrowing of the medial joint compartment. There are tiny chronic tricompartment marginal osteophytes. Small calcific densities project over the knee joint, seen over the medial joint compartment on the AP view. These likely represent loose bodies within the joint. XR/XR knee RT 4V IMPRESSION: 1. No acute bony abnormality. 2. Moderate osteoarthritis. 3. Probable loose bodies within the knee joint.
== END 2022-11-19 10:25 | disposition home or self-care (01) ==
LOC: HO.HHCX 10:24
PROVIDERS: Visit Provider Internal Medicine
DX: M17.11 Unilateral primary osteoarthritis, right knee (principal)
CPT/HCPCS: 73564

== ENCOUNTER 2023-01-16 | Outpatient (REF) | payer MEDICAID, SELFPAY ==
[2023-01-18 12:50] LABS: BV Int Neg Control Negative (Negative); BV Int Pos Control Positive (Positive)
== END 2023-01-16 00:01 | disposition home or self-care (01) ==
LOC: HO.HHCLNP
PROVIDERS: Visit Provider Advanced Practice Midwife
DX: B35.9 Dermatophytosis, unspecified (principal)
CPT/HCPCS: 87480; 87510; 87660

== ENCOUNTER 2023-01-16 09:19 | Outpatient (AMB) | payer MEDICAID, SELFPAY ==
[2023-01-16 09:39] VITALS: BMI 38.0
--- NOTE | 2023-01-16 09:39 | MHC.OFFVIS ---
Intake Vital Signs 01/16/23 09:39 Height 5 ft 1 in Weight 201 lb BMI 38.0 Intake Visit Reasons: ov-left shoulder pain Intake Note: Lucero 57 yr old female presents today for her left shoulder s/p injection from 08/01/22. States injection did not help much. States she was sent to have an MRI done, isnt sure if it was her PCP. Patient states she cont's to have limited ROM. Patient states she has been doing her own shoukder exercies at home due to having no transportation to P.T visit. Allergies carisoprodol [From [employer]] Allergy (Unknown, Verified 01/16/23 09:43) UNKNOWN HPI ov-left shoulder pain HPI Details 57-year-old female who returns to the office today with an official court interpreter for a follow-up of left shoulder pain. She had an injection on 08/01/22 which provided her mild relief. Her PCP ordered an mri of the shoulder back in September which was completed. She continues to have limited ROM in her shoulder and experiences a pull with extension at certain times. She is not working with physical therapy as she does not have a transportation service to visit them. She does works on her home exercises for her shoulder. She uses lidocaine patches for her shoulder with benefits. [facility] Medical History Hypothyroidism Multinodular thyroid Vitamin D deficiency Surgical History History of appendectomy History of hysterectomy History of tubal ligation Hx of colonoscopy Family History Father No problems noted. Mother No problems noted. Social History Alcohol intake: current Alcohol intake frequency: holidays/special occasions only Patient Tobacco Use Status: Never used Tobacco Current occupational status: disabled Current occupation: rt hand Review of Systems Const All systems reviewed & are unremarkable except as noted in HPI and below Physical Exam Vital Signs: BMI result Body Mass Index 38.0 Const General: cooperative and no acute distress Orientation/consciousness: patient oriented x3 Resp Effort & Inspection: normal respiratory effort and able to speak in complete sentences Cardio Peripheral pulses: Peripheral pulses 2+ throughout Neuro General: patient oriented x3 Extrem Other: Left shoulder normal to inspection. Tenderness over the bicipital groove and along the deltoid region of the shoulder. Forward flexion to 90, external rotation to 90, internal rotation to side pocket. 5/5 RTC strength. Negative Dos Santos and cross body abduction. NVI. Results Reviewed Results Reviewed: MR shoulder LT wo con 10/01/22 IMPRESSION: Mild supraspinatus and infraspinatus tendinosis with mild bursal surface fraying/partial tearing of the junctional fibers measuring 1.6 x 1.1 cm. No full-thickness rotator cuff tendon tear. ? Mild acromioclavicular osteoarthritis. Mild subacromial subdeltoid bursitis. ? Nondisplaced undersurface tear throughout entirety of the glenoid labrum. Assessment & Plan Assessment & Plan (1) Tendonitis of left rotator cuff: Code(s): M75.82 - Other shoulder lesions, left shoulder Plan She is doing quite well since her last visit. I would encourage to keep working on her shoulder exercises and she can take anti-inflammatories for flareups. If symptoms persist or worsens or if she has any concerns, patient will contact the office, otherwise follow-up as needed. Patient Instructions: Scribed for Titus Sierra PA-C, by Ayad Moreno medical management trainer, on 01/16/2023 at 9:30 AM MARY. Titus Weir PA-C, have personally reviewed and agree with the information entered by the scribe. Coding Level of Care Code Est Pt Level 3 (99413) Diagnoses Tendonitis of left rotator cuff M75.82
== END 2023-01-16 09:59 | disposition home or self-care (01) ==
PROVIDERS: PCP Internal Medicine; Visit Provider Physician Assistant
DX: M75.82 Other shoulder lesions, left shoulder (principal)
CPT/HCPCS: 99213

== ENCOUNTER → 2023-01-16 09:19 | Outpatient (BNVA) | payer MEDICAID, SELFPAY | PROVIDERS: PCP Internal Medicine; Visit Provider Physician Assistant | DX: M75.82 Other shoulder lesions, left shoulder (principal) | CPT/HCPCS: 99213 ==

== ENCOUNTER 2023-03-25 08:21 | Outpatient (REF) | payer MEDICAID, SELFPAY | END 2023-03-25 08:22 | disposition home or self-care (01) | LOC: HO.HHCL 08:21 | PROVIDERS: Visit Provider Internal Medicine | DX: R73.03 Prediabetes (principal) | CPT/HCPCS: 36415; 80048; 80061; 83036; 84443 ==

== ENCOUNTER 2023-04-10 08:53 | Outpatient (AMB) | payer MEDICAID, SELFPAY ==
--- NOTE | 2023-04-10 08:59 | A.OFFVIS_ITS ---
Intake Vital Signs 04/10/23 09:10 Height 5 ft 1 in Weight 200 lb 9.93 oz BMI 37.9 BP 140/75 H Blood Pressure Location Lt brachial Position Sitting Pulse 73 Intake Visit Reasons: Colonscopy Screening Intake Note: Lucero is here today for a colonoscopy screening. CC: She states that she is here because she has a pain in her LUQ and she wants to know if she will need a colonoscopy or not. She had a CT scan and was told she needs to be on antibiotics but she was unable to due so because she had diverticulitis. Senior Quality Technician Required: Yes Senior Quality Technician Name: [id number] Abhijit Allergies carisoprodol [From [facility]] Allergy (Unknown, Verified 04/10/23 09:10) UNKNOWN Medication List - Last Reconciled 04/10/23 by Laurence Cristobal PA-C albuterol sulfate 90 mcg/actuation (ProAir HFA) 1 inh inhalation QID cyclobenzaprine 10 mg PO TID PRN diclofenac sodium 1% (Voltaren) 2 grams topical BID fluticasone propionate 110 mcg/actuation (Flovent HFA) 0 mcg PO BID gabapentin 300 mg PO TID ipratropium-albuterol 0.5 mg-3 mg(2.5 mg base)/3 mL 3 mL inhalation QID PRN lidocaine 5% patches topical loratadine 10 mg PO DAILY PRN methocarbamol 750 mg PO TID PRN metoprolol succinate ER 75 mg PO DAILY metoprolol succinate ER 25 mg PO DAILY montelukast (Singulair) 10 mg PO DAILY naproxen 500 mg PO BID polyethylene glycol 3350 17 grams PO BID HPI HPI Comments History of Present Illness Details A 57 y/o female seen previously her in GI by Ms. Mckeon- referred for screening colonoscopy- however she says she was referred after having abdominal pain / antibiotic- that was at [facility] -in July- treated for for diverticulitis- C/o LUQ pain for many months- comes and goes-worse after eating. Severe constipation- miralax needed to have a BM- She hasd a normal BM yesterday- she takes miralax- unclear-LLQ pain ( points LLQ) she then has pain all over belly - reviewed previous episode of diverticulitis-this seems to be the same location- having this 30 years ago at least- she says she has been treated many, many times- She does not typically get a fever- she has not had any fever/ rectal bleeding- PFS Medical History Chronic abdominal pain Vitamin D deficiency Multinodular thyroid Hypothyroidism Surgical History Hx of colonoscopy History of hysterectomy History of tubal ligation History of appendectomy Family History Father No problems noted. Mother No problems noted. Social History Alcohol intake: current Alcohol intake frequency: holidays/special occasions only Patient Tobacco Use Status: Never used Tobacco Smoked in Last 30 Days: No Use of substances other than those prescribed or required for medical reasons: No Advance Directives: No Advance Directives Information Provided: No Current occupational status: unemployed and disabled Current occupation: rt hand Physical Exam Vital Signs: Last Vital Signs Pulse 73 04/10/23 09:10 BP 140/75 H 04/10/23 09:10 BMI result Body Mass Index 37.9 Const General: no acute distress Nutritional Appearance: overweight Orientation/consciousness: patient oriented x3 Limitations: language barrier Eyes Sclerae: sclerae normal Resp Effort & Inspection: normal respiratory effort and able to speak in complete sentences Auscultation: clear to auscultation bilaterally, no rales, no rhonchi and no wheezes Cardio Rate: regular rate Rhythm: regular rhythm GI Palpation (GI): Soft to palpation, Tenderness to palpation present (GI) in the LLQ and in the LUQ, Guarding due to palpation present (GI) and not rigid Auscultation: normal bowel sounds Neuro General: patient oriented x3 Extrem General: Yes full ROM Psych Appearance: grossly normal Mental Status: mental status grossly normal Speech and movement: Clear speech present Affect: Labile affect present Attitude: cooperative Assessment & Plan Assessment & Plan (1) Chronic abdominal pain: Comment: Currently pain constant-10/23- tpp- 12/23 Code(s): R10.9 - Unspecified abdominal pain; G89.29 - Other chronic pain (2) Hx of diverticulitis of colon: Comment: detailed discussion w/ interp- pt- wants to go to ED- however wanted to wait until after later appt Describes as previuos episodes- Code(s): Z87.19 - Personal history of other diseases of the digestive system Plan: ED- this a.m. r/o diveterticulitis- Will see back to further discuss GI plan Orders: Orders Complete Blood Count Auto Diff Today G89.29 - Other chronic pain, R10.9 - Unspecified abdominal pain, Z87.19 - Personal history of other diseases of the digestive system Patient Instructions: 57-year-old female or and oriented left upper and lower quadrant pain-so she H to previous diverticulitis episodes Tender on exam- ED escorted by VENKAT- May need CT to rule out diverticulitis- Encouraged to call questions or concerns Will follow back up when timing appropriate Coding Level of Care Code New Pt Level 4 (50452) Diagnoses Chronic abdominal pain R10.9; G89.29 Hx of diverticulitis of colon Z87.19 Time Spent (min) 45 Comment [id number] Abhijit- pt to ED
[2023-04-10 09:10] VITALS: BP 140/75; PULSE 73; BMI 37.9
== END 2023-04-10 09:50 | disposition home or self-care (01) ==
PROVIDERS: PCP Internal Medicine; Visit Provider Physician Assistant
DX: R10.9 Unspecified abdominal pain (principal); G89.29 Other chronic pain; Z87.19 Personal history of other diseases of the digestive system
CPT/HCPCS: 99204

== ENCOUNTER → 2023-04-10 08:53 | Outpatient (BNVA) | payer MEDICAID, SELFPAY | PROVIDERS: PCP Internal Medicine; Visit Provider Physician Assistant | DX: R10.9 Unspecified abdominal pain (principal); G89.29 Other chronic pain; Z87.19 Personal history of other diseases of the digestive system | CPT/HCPCS: 99212 ==

== ENCOUNTER 2023-04-10 09:52 | Emergency (ER) | payer MEDICAID, SELFPAY ==
[2023-04-10 09:55] VITALS: BP 171/78; PULSE 76; RESP 16; TEMP 36.1; O2SAT 100; BMI 38.3
--- NOTE | 2023-04-10 10:08 | ED.ABDPAIN ---
HPI - Abdominal Pain General Chief Complaint: Abdominal Pain Stated Complaint: flare up Time Seen by Provider: 04/10/23 10:03 Source: patient Mode of arrival: ambulatory Limitations: language barrier History of Present Illness HPI narrative: History through face boss, left upper abdomen pain started a few weeks ago. Patient has had multiple attacks of diverticulitis. Patient had a scan months ago that showed diverticulitis but it was never treated. Patient with intermittent cramping and diarrhea MD elicited complaint: abdominal pain Pertinent past history: diverticulitis Onset (ago): month(s) Pain Consistency: intermittent Location: LLQ Severity: mild Related Data Home Medications Medication Instructions Recorded Confirmed albuterol sulfate 90 mcg/actuation 1 inh inhalation QID 03/21/20 08/21/22 aerosol inhaler (ProAir HFA) ipratropium 0.5 mg-albuterol 3 mg 3 ml inhalation QID PRN 03/21/20 08/21/22 (2.5 mg base)/3 mL nebulization soln montelukast 10 mg tablet 10 mg PO DAILY 03/21/20 08/21/22 (Singulair) fluticasone propionate 110 0 mcg PO BID 02/21/21 08/21/22 mcg/actuation HFA aerosol inhaler (Flovent HFA) loratadine 10 mg tablet 10 mg PO DAILY PRN allergies 02/21/21 08/21/22 metoprolol succinate 50 mg 75 mg PO DAILY 08/21/22 08/21/22 tablet,extended release 24 hr gabapentin 300 mg capsule 300 mg PO TID 04/10/23 lidocaine 5 % topical patch patch topical 04/10/23 metoprolol succinate 25 mg 25 mg PO DAILY 04/10/23 tablet,extended release 24 hr polyethylene glycol 3350 17 gram 17 g PO BID 04/10/23 oral powder packet Previous Rx's Medication Instructions Recorded diclofenac sodium 1 % topical gel 2 g topical BID #100 grams 07/04/20 (Voltaren) naproxen 500 mg tablet 500 mg PO BID #60 tabs 01/07/22 cyclobenzaprine 10 mg tablet 10 mg PO TID PRN muscle spasm #14 03/25/22 tabs methocarbamol 750 mg tablet 750 mg PO TID PRN muscle spasm #15 07/14/22 tabs amoxicillin 875 mg-potassium 1 tab PO BID #20 tabs 04/10/23 clavulanate 125 mg tablet Allergies Allergy/AdvReac Type Severity Reaction Status Date / Time carisoprodol [From [facility]] Allergy Unknown UNKNOWN Verified 04/10/23 09:10 Review of Systems Review of Systems Yes all other systems are reviewed and are negative Denies Sensory deficit (Neuro) [facility] Past Medical History Medical History Chronic abdominal pain Vitamin D deficiency Multinodular thyroid Hypothyroidism Surgical History Hx of colonoscopy History of hysterectomy History of tubal ligation History of appendectomy Family History Family History Father No problems noted. Mother No problems noted. Social History Social History Alcohol intake: current Alcohol intake frequency: holidays/special occasions only Patient Tobacco Use Status: Never used Tobacco Smoked in Last 30 Days: No Use of substances other than those prescribed or required for medical reasons: No Advance Directives: No Advance Directives Information Provided: No Current occupational status: unemployed and disabled Current occupation: rt hand Physical Exam ED Vital Signs: Vital Signs - 24 hr 04/10/23 09:55 Temperature 97 F Pulse Rate 76 Respiratory Rate 16 Blood Pressure 171/78 H Pulse Oximetry 100 Oxygen Delivery Method Room Air BMI result Body Mass Index 38.3 Const General: healthy appearing Nutritional Appearance: average body habitus Orientation/consciousness: oriented to person and patient oriented x3 Limitations: no limitations HENMT Head: Yes normal to inspection Ears: external ears normal General nose exam: Normal external nose present Mouth: Normal oral and palatal mucosa present and oropharynx normal Throat: Yes posterior oropharynx normal Eyes General: appearance normal, both eyes and all related structures Neck Neck: Yes normal visual inspection Chest Chest palpation & inspection: normal inspection of the chest Resp Auscultation: clear to auscultation bilaterally Cardio Jugular venous distension: no JVD Rate: regular rate Rhythm: regular rhythm Heart sounds: S1 normal heart sound present and S2 normal heart sound present GI Inspection: Yes normal to inspection Palpation (GI): Soft to palpation, nontender and No hepatosplenomegaly present Auscultation: normal bowel sounds General: Yes no CVA tenderness Back/Spine/Pelvis Back: no CVA tenderness Skin General skin exam: no rashes or lesions noted Neuro General: oriented to person and patient oriented x3 Cranial nerves: Yes CN's II-XII intact bilaterally Motor exam (neuro): 5/5 motor strength present throughout Sensory Exam: No Sensory deficit (Neuro) Extrem General: Yes normal to inspection Psych Appearance: grossly normal Course Reevaluation(s) Reevaluation #1: reviewed old [facility] from [facility], mild diverticulitis at that time, based on symptoms, no fever, no elevated wbc will dc on augmentin without imaging Time: 11:49 Medical Decision Making Differential Diagnosis Differential Diagnoses: The differential diagnosis associated with the presentation includes (Diverticulitis, abdominal abscess, perforated bowel were all considered) Admission/Observation Consideration of admission/observation: Escalation of care including admission/observation considered (upon arrival patient was considered for admission) Lab Data MDM Lab Attestation statement: I reviewed the patient's lab results. (no elevated wBC) 04/10/23 10:41 04/10/23 10:41 Labs: Lab Results 04/10/23 Range/Units 10:41 WBC 8.3 (4.8-10.8) X10*3/uL RBC 4.52 (4.20-5.50) X10*6/uL Hgb 13.7 (12.0-16.0) g/dl Hct 39.5 (37.0-47.0) % MCV 87.4 (80.0-98.0) fL MCH 30.3 (27.0-33.0) pg MCHC 34.7 (31.0-35.0) g/dl RDW 13.1 (11.0-16.0) % Plt Count 310 (160-400) X10*3/uL MPV 9.4 (9.4-12.3) fL Immature Gran % (Auto) 0.1 (0.0-0.4) % Neut % (Auto) 57.1 (45-73) % Lymph % (Auto) 34.5 (20-40) % [place] % (Auto) 7.4 (2-11) % Eos % (Auto) 0.5 (0-4) % Baso % (Auto) 0.4 (0-2) % Lymph # (Auto) 2.9 (1.2-4.9) X10*3/uL [place] # (Auto) 0.6 (0.1-1.2) X10*3/uL Eos # (Auto) 0.0 (0.0-0.4) X10*3/uL Baso # (Auto) 0.0 (0.0-0.2) X10*3/uL Abs Immat Gran (auto) 0.01 (0.00-0.03) X10*3/uL Absolute Neuts (auto) 4.8 (2.0-8.3) x10*3/uL Absolute Nucleated RBC 0.000 (0.0-0.012) X10*3/uL Nucleated RBC % (auto) 0.0 (0.0-0.2) /100WBC Sodium 141 (135-145) mmol/L Potassium 3.5 (3.3-5.1) mmol/L Chloride 107 (96-108) mmol/L Carbon Dioxide 26 (22-29) mmol/L Anion Gap 12 (12-20) BUN 16 (9-16) mg/dL Creatinine 0.79 (0.5-1.4) mg/dL Estim Creat Clear Calc 79.2 Estimated GFR > 60 Random Glucose 107 (60-115) mg/dL Calcium 9.2 (8.4-10.2) mg/dL Total Bilirubin 0.6 (0.0-1.0) mg/dL AST 34 H (5-31) U/L ALT 39 H (0-31) U/L Alkaline Phosphatase 63 (39-117) U/L Total Protein 7.6 (6.5-8.0) g/dL Albumin 4.0 (3.5-5.0) g/dL Urine Color Yellow Urine Appearance Clear Urine pH 5.5 (5.0-9.0) Ur Specific [place] <= 1.005 (1.005-1.025) Urine Protein Negative (Neg-Trace) mg/dL Urine Glucose (UA) Negative (Negative) mg/dL Urine Ketones Negative (Negative) mg/dL Urine Blood Moderate (2+) H (Negative) Urine Nitrite Negative (Negative) Ur Leukocyte Esterase Negative (Negative) Urine RBC 3-5 H (0-2) /HPF Urine WBC 0-5 (0-5) /HPF Ur Squamous Epith Cells 0-2 (0-2) /HPF Urine Bacteria None Seen (None Seen) Hyaline Casts 0-2 (0-2) /LPF External Record Review External record reviewed: Outpatient record and Prior outpatient radiology ([facility] CT reviewed) Tests considered The following testing was considered but not selected: CT scan of abd considered but patient afebrile non toxic appearing Prescription Management I considered prescription management with: Pain Medication (narcotic pain medication considered but will start patient on augmentin for diverticulitis) Discharge Plan Discharge Clinical Impression: Diverticulitis Patient Disposition: Home, Self-Care Instructions: Diverticulitis (ED), Diverticulitis Diet (ED) Prescriptions: New amoxicillin-pot clavulanate 875-125 mg tablet 1 tab PO BID Qty: 20 0RF No Action diclofenac sodium [Voltaren] 1 % gel 2 g topical BID Qty: 100 3RF Rx Instructions: apply to single knee, ankle, foot; for foot includes sole/toes/top of foot naproxen 500 mg tablet 500 mg PO BID Qty: 60 3RF cyclobenzaprine 10 mg tablet 10 mg PO TID PRN (Reason: muscle spasm) Qty: 14 0RF methocarbamol 750 mg tablet 750 mg PO TID PRN (Reason: muscle spasm) Qty: 15 0RF montelukast [Singulair] 10 mg tablet 10 mg PO DAILY albuterol sulfate [ProAir HFA] 90 mcg/actuation HFA aerosol inhaler 1 inh inhalation QID ipratropium-albuterol 0.5 mg-3 mg(2.5 mg base)/3 mL solution for nebulization 3 ml inhalation QID PRN loratadine 10 mg tablet 10 mg PO DAILY PRN (Reason: allergies) Flovent HFA 110 mcg/actuation HFA aerosol inhaler 0 mcg PO BID metoprolol succinate 50 mg tablet extended release 24 hr 75 mg PO DAILY gabapentin 300 mg capsule 300 mg PO TID metoprolol succinate 25 mg tablet extended release 24 hr 25 mg PO DAILY lidocaine 5 % adhesive patch,medicated topical polyethylene glycol 3350 17 gram powder in packet 17 g PO BID Referrals: Kamini Monroy MD [Primary Care Provider] - 5 days
--- NOTE | 2023-04-10 10:29 | PC.NURSE ---
pt aox4, ambulatory. reporting abd pain x a couple weeks with hx diverticulitis. pt had CT scan a few months ago which showed the divericulitis but pt was not treated. urine sample obtained, tech drawing labs.
[2023-04-10 10:46] LABS: MANUAL DIFF FLAG NO
[2023-04-10 10:49] LABS: Basophils Percent Auto 0.4 % (0-2); Eosinophils Percent Auto 0.5 % (0-4); Hematocrit 39.5 % (37.0-47.0); Hemoglobin 13.7 g/dl (12.0-16.0); Imm Gran Abs Auto 0.01 X10*3/uL (0.00-0.03); Imm Gran Pct Auto 0.1 % (0.0-0.4); Lymphocytes Absolute Auto 2.9 X10*3/uL (1.2-4.9); Lymphocytes Percent Auto 34.5 % (20-40); Mean Corpuscular HGB Conc 34.7 g/dl (31.0-35.0); Mean Corpuscular Hemoglobin 30.3 pg (27.0-33.0); Mean Corpuscular Volume 87.4 fL (80.0-98.0); Mean Platelet Volume 9.4 fL (9.4-12.3); Monocytes Absolute Auto 0.6 X10*3/uL (0.1-1.2); Monocytes Percent Auto 7.4 % (2-11); Neutrophils Absolute Auto 4.8 x10*3/uL (2.0-8.3); Neutrophils Percent Auto 57.1 % (45-73); Platelet Count 310 X10*3/uL (160-400); Red Blood Count 4.52 X10*6/uL (4.20-5.50); Red Cell Distribution Width 13.1 % (11.0-16.0); White Blood Count 8.3 X10*3/uL (4.8-10.8)
[2023-04-10 10:50] LABS: Appearance Urine Clear; Color Urine Yellow; Glucose Urine UA Negative (Negative); Leukocyte Esterase Urine Negative (Negative); Nitrite Urine Negative (Negative); PH 5.5 (5.0-9.0); Specific Gravity - Urine <= 1.005 (1.005-1.025); UMIC TRIGGER UACC YES; Urine Blood Moderate (2+) (Negative); Urine Ketones Negative (Negative); Urine Protein Negative (Neg-Trace)
[2023-04-10 11:00] LABS: Alanine Aminotransferase 39 U/L (0-31); Alkaline Phosphatase 63 U/L (39-117); Anion Gap 12 (12-20); Aspartate Amino Transferase 34 U/L (5-31); Bacteria Urine None Seen (None Seen); Bilirubin Total 0.6 mg/dL (0.0-1.0); Blood Urea Nitrogen 16 mg/dL (9-16); Calcium 9.2 mg/dL (8.4-10.2); Carbon Dioxide 26 mmol/L (22-29); Chloride 107 mmol/L (96-108); Creatinine Clr Calc Pharmacy 79.2; Estimated Glomerular Filt Rate > 60; Glucose Random 107 mg/dL (60-115); Hyaline Casts Urine 0-2 /LPF (0-2); Potassium 3.5 mmol/L (3.3-5.1); Sodium 141 mmol/L (135-145); Squamous Epithelial Cell Urine 0-2 /HPF (0-2); Total Protein 7.6 g/dL (6.5-8.0); WBC Urine 0-5 /HPF (0-5)
== END 2023-04-10 12:36 | disposition home or self-care (01) ==
PROVIDERS: Emergency Provider Emergency Medicine; PCP Internal Medicine
DX: K57.92 Diverticulitis of intestine, part unspecified, without perforation or abscess without bleeding (principal); R10.12 Left upper quadrant pain; Z79.899 Other long term (current) drug therapy
CPT/HCPCS: 36415; 80053; 81001; 85025; 99283; 99284